=== PATIENT | female | born 1970 | race Caucasian/White ===

== ENCOUNTER 2024-05-24 14:51 | Emergency (ER) | payer OTHER, SELFPAY ==
--- NOTE | ~2024-05-24 | XR_ITS ---
EXAMINATION: XR hand RT min 3V DATE: 05/24/2024 15:37 INDICATION: Right hand swelling and numbness to the fourth digit TECHNIQUE: Posteroanterior, oblique and lateral views of the affected hand were obtained. COMPARISON: None. FINDINGS: Alignment is normal. No fracture. Joint spaces are normal. Soft tissues are unremarkable. IMPRESSION: 1. Negative right hand radiographs. Reviewed, dictated and finalized at location B. ER GUARD
[2024-05-24 14:53] VITALS: BP 124/74; PULSE 86; RESP 18; TEMP 36.3; O2SAT 100
--- NOTE | 2024-05-24 15:28 | ED.EXTPRO ---
HPI - Extremity Problem General Chief complaint: Extremity Problem,Nontraumatic <Oliva Brown CAR SPOTTER - Last Filed: 05/24/24 15:36> Stated complaint: R HAND CIRCULATION ISSUES <Oliva Brown APRN - Last Filed: 05/24/24 15:36> Time Seen by Provider: 05/24/24 15:15 <Oliva Brown CAR SPOTTER - Last Filed: 05/24/24 15:36> Focused HPI: Patient is a 53-year-old female who presents to the ER with spontaneous right 4th digit swelling. She reports she was on a zoom call when her right 4th digit began hurting this morning. Patient looked down and noticed her finger was swollen, so she took off her rings. She reports since then her right 4th digit has gone numb and is bruised. Patient endorses full range of motion of all digits on R hand. She denies any history of clotting disorders, factor 5 Leiden, DVT, PEs, or Raynaud syndrome. Patient denies any symptoms of shortness of breath, chest pain, joint swelling, joint rigidity. GENERAL: Well-appearing, well-nourished, and in no acute distress. HEAD: Normocephalic, atraumatic. CHEST: Clear to auscultation. ?No respiratory distress. HEART: Regular rate and rhythm.? NEURO: ?Alert and oriented x3. SKIN: Positive for swelling, ecchymosis from the base of the right 4th digit to the DIP joint. + CWMS R 4th digit, full ROM in all R hand digits Patient screened in triage and initial orders placed.? ?Additional care and disposition to be based upon?diagnostic testing and treatment. <Oliva Brown APRN - Last Filed: 05/24/24 15:36> Focused HPI: Patient is a 53-year-old female who presents to the ER with spontaneous right 4th digit swelling. She reports she was on a zoom call when her right 4th digit began hurting this morning. Patient looked down and noticed her finger was swollen, so she took off her rings. She reports since then her right 4th digit has gone numb and is bruised. Patient endorses full range of motion of all digits on R hand. She denies any history of clotting disorders, factor 5 Leiden, DVT, PEs, or Raynaud syndrome. Patient denies any symptoms of shortness of breath, chest pain, joint swelling, joint rigidity. GENERAL: Well-appearing, well-nourished, and in no acute distress. HEAD: Normocephalic, atraumatic. CHEST: Clear to auscultation. ?No respiratory distress. HEART: Regular rate and rhythm.? NEURO: ?Alert and oriented x3. SKIN: Positive for swelling, ecchymosis from the base of the right 4th digit to the DIP joint. + CWMS R 4th digit, full ROM in all R hand digits Patient screened in triage and initial orders placed.? ?Additional care and disposition to be based upon?diagnostic testing and treatment. <ARMEN Mims Last Filed: 05/25/24 01:32> Source: patient <ARMEN Mims Last Filed: 05/25/24 01:32> Mode of arrival: ambulatory <ARMEN Mims Last Filed: 05/25/24 01:32> Limitations: no limitations <ARMEN Mims Last Filed: 05/25/24 01:32> History of Present Illness HPI Narrative: Agree with above HPI. Patient denies any pain. <ARMEN Mims Last Filed: 05/25/24 01:32> Related Data Home medications: Home Medications Medication Instructions Recorded Confirmed No Home Medications 01/07/20 01/07/20 <Oliva Brown APRN - Last Filed: 05/24/24 15:36> Allergies/Adverse reactions: Allergies Allergy/AdvReac Type Severity Reaction Status Date / Time codeine AdvReac Unknown Nausea and Verified 04/13/18 12:47 Vomiting <Oliva Brown APRN - Last Filed: 05/24/24 15:36> Review of Systems Review of Systems: All systems reviewed & are unremarkable except as noted in HPI. 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 1999 Hx of cholecystectomy Hx of LASIK <Oliva Brown APRN - Last Filed: 05/24/24 15:36> Family History Family History: Family History Mother , 71 Carcinoma of colon Emphysema, unspecified Father Myocardial infarction Dementia Sibling Diabetes mellitus Hypertension <Oliva Brown APRN - Last Filed: 05/24/24 15:36> Exam Narrative: GENERAL: Well appearing, well-nourished, non-toxic, in no acute distress. HEAD: Normocephalic, atraumatic. RESPIRATORY: Airway patent, respirations nonlabored. CARDIOVASCULAR: Regular rate and rhythm. Radial pulses strong and easily palpable. MUSCULOSKELETAL: Moves all extremities. No gross deformities. Full range of motion of right 4th finger. Diffuse ecchymosis throughout flexor surface of finger. No significant swelling. No tenderness to palpation. Sensation is intact throughout entire digit. Capillary refill brisk and consistent with other fingers. SKIN: Warm, dry, normal color. NEURO: A&O X3. Speech clear. No ataxic movements. PSYCHIATRIC: Appropriate mood and affect. Normal interaction. <Shiela Gore PA-C - Last Filed: 05/25/24 01:32> Course Vital Signs Vital signs: Vital Signs Temperature 97.3 F L 05/24/24 14:53 Pulse Rate 86 05/24/24 14:53 Respiratory Rate 18 05/24/24 14:53 Blood Pressure 124/74 05/24/24 14:53 Pulse Oximetry 100 05/24/24 14:53 Oxygen Delivery Room Air 05/24/24 14:53 Temperature 97.5 F L 05/24/24 19:02 Pulse Rate 89 05/24/24 19:02 Respiratory Rate 20 05/24/24 19:02 Blood Pressure 97/73 L 05/24/24 19:02 Pulse Oximetry 100 05/24/24 19:02 Oxygen Delivery Room Air 05/24/24 14:53 <Oliva Brown, CAR SPOTTER - Last Filed: 05/24/24 15:36> Vital Signs Temperature 97.3 F L 05/24/24 14:53 Pulse Rate 86 05/24/24 14:53 Respiratory Rate 18 05/24/24 14:53 Blood Pressure 124/74 05/24/24 14:53 Pulse Oximetry 100 05/24/24 14:53 Oxygen Delivery Room Air 05/24/24 14:53 Temperature 97.5 F L 05/24/24 19:02 Pulse Rate 89 05/24/24 19:02 Respiratory Rate 20 05/24/24 19:02 Blood Pressure 97/73 L 05/24/24 19:02 Pulse Oximetry 100 05/24/24 19:02 Oxygen Delivery Room Air 05/24/24 14:53 <Shiela Gore PA-C - Last Filed: 05/25/24 01:32> MDM - Extremity (Nontraumatic) MDM Narrative Medical decision making narrative: No evidence of neurovascular compromise. Good capillary refill. Good pulses. Sensation intact. Good temperature of digit. Patient denies any pain. Pulse ox was placed on digit and with appropriate oxygenation. X-rays without signs of fracture. Discussed likelihood that patient had superficial blood vessel injury from finger swelling/rings being caught, provided reassurance. Recommended close follow-up with PCP for further evaluation if needed. Given return precautions. Discharged in stable condition. <Shiela Gore PA-C - Last Filed: 05/25/24 01:32> Medical Records Attestation: I reviewed the patient's medical records. <ARMEN Mims Last Filed: 05/25/24 01:32> Imaging Data Attestation: I personally reviewed and interpreted this imaging study as follows: <ARMEN Mims Last Filed: 05/25/24 01:32> Radiologist's impression: ITS Impressions Hand X-Ray 05/24/24 15:40 IMPRESSION: 1. Negative right hand radiographs. <Shiela Gore PA-C - Last Filed: 05/25/24 01:32> Discharge Plan Discharge Clinical Impression: Superficial bruising of finger <Oliva Brown APRN - Last Filed: 05/24/24 15:36> Patient Disposition: Home, Self-Care <Oliva Brown APRN - Last Filed: 05/24/24 15:36> Condition: Stable <Oliva Brown APRN - Last Filed: 05/24/24 15:36> Instructions: Antibiotic Form, Finger Sprain (ED) <Oliva Brown APRN - Last Filed: 05/24/24 15:36> Additional Instructions: Continue to monitor symptoms. You may utilize ice to finger if needed. Follow up with your primary care doctor for further evaluation if needed. Return to the ED if you experience worsening or severe pain/swelling/bruising/numbness, or any other symptoms of concern. <Oliva Brown APRN - Last Filed: 05/24/24 15:36> Prescriptions: No Action No Home Medications <Oliva Brown APRN - Last Filed: 05/24/24 15:36> Follow-up/Referrals: UNKNOWN,DOCTOR [Primary Care Provider] - <Oliva Brown APRN - Last Filed: 05/24/24 15:36> Time of Disposition: 18:55 <Oliva Brown APRN - Last Filed: 05/24/24 15:36> 18:55 <Shiela Gore PA-C - Last Filed: 05/25/24 01:32>
[2024-05-24 19:02] VITALS: BP 97/73; PULSE 89; RESP 20; TEMP 36.4; O2SAT 100
== END 2024-05-24 19:12 | disposition home or self-care (01) ==
PROVIDERS: Emergency Provider Physician Assistant
DX: S60.041A Contusion of right ring finger without damage to nail, initial encounter (principal)
CPT/HCPCS: 73130; 99283